=== PATIENT | female | born 1990 | race African-American/Black ===

== ENCOUNTER 2024-09-14 15:15 | Emergency (ER) | payer OTHER ==
[~2024-09-14] VITALS: Ht 154.9 cm; Wt 49.9 kg
[2024-09-14 15:26] VITALS: O2SAT 100
== END 2024-09-14 16:22 | disposition home or self-care (01) ==
LOC: ER 15:15
DX: Z77.098 Contact with and (suspected) exposure to other hazardous, chiefly nonmedicinal, chemicals (principal)
CPT/HCPCS: A4606; A4663